=== PATIENT | male | born 1980 | race Caucasian/White ===

== ENCOUNTER → 2021-01-15 | Outpatient (CLI) | payer OTHER | LOC: KOH-I 08:10 | DX: R10.9 Unspecified abdominal pain (principal); Z90.49 Acquired absence of other specified parts of digestive tract | CPT/HCPCS: 74176 ==

== ENCOUNTER → 2022-07-12 | Outpatient (CLI) | payer BC | LOC: KOH-I 15:47 | DX: M79.672 Pain in left foot (principal) | CPT/HCPCS: 73630 ==